=== PATIENT | male | born 1985 | race American Indian/Alaskan Native ===

== ENCOUNTER 2016-08-03 14:43 | Emergency (ER) | payer OTHER ==
[2016-08-03 15:03] VITALS: BP 135/85
--- NOTE | 2016-08-03 19:53 | Emergency Department Report ---
HPI - General Chief Complaint: Extremity Problem,Nontraumatic Time Seen by Provider: 08/03/16 19:23 - HPI HPI: 30-year-old male presents today with right foot pain 2 weeks that worsened today. Patient states that he's had a knot over the lateral aspect of his foot for 3 months which didn't bother him until 2 weeks ago. Denies injury or trauma. Denies any pain at rest. Describes his pain as 9 out of 10 aching pain with weightbearing. Denies numbness, weakness, paresthesias. Denies trying any medication for pain relief. Denies fever, chills, nausea, vomiting, abdominal pain, chest pain, shortness of breath. ED Past Medical Hx - Past Medical History Previous Medical History?: No - Surgical History Past Surgical History?: No - Social History Smoking Status: Current Every Day Smoker Substance Use Type: None - Medications Home Medications: Home Medications Medication Instructions Recorded Confirmed Last Taken Type Naproxen [Naprosyn] 500 mg PO BID #30 tablet 08/03/16 Unknown Rx ED Review of Systems ROS: Stated complaint: RT FOOT PAIN Other details as noted in HPI Constitutional: denies: chills, fever, malaise Eyes: denies: eye pain ENT: denies: ear pain, throat pain, congestion Respiratory: denies: cough, shortness of breath, wheezing Cardiovascular: denies: chest pain, palpitations Endocrine: no symptoms reported Gastrointestinal: denies: abdominal pain, nausea, vomiting Musculoskeletal: arthralgia Neurological: denies: headache, weakness, numbness, paresthesias Physical Exam - Physical Exam Vital Signs: Vital Signs 08/03/16 14:59 Temperature 98.3 F Pulse Rate 83 Respiratory 16 Rate Blood Pressure 135/85 O2 Sat by Pulse 98 Oximetry Physical Exam: GENERAL: The patient is well-developed and well-nourished. Patient is in NAD. HEAD: Normocephalic. Atraumatic. CHEST/LUNGS: Clear to auscultation throughout. HEART/CARDIOVASCULAR: Regular rate and rhythm. ABDOMEN: Abdomen is soft, nontender. No guarding or rebound tenderness. RIGHT FOOT: A 1 cm in diameter, indurated raised lesion noted over the lateral aspect of right midfoot; slightly tender to palpation. No bleeding or drainage noted. Normal sensation. Peripheral pulses intact. Capillary refill less than 2 seconds. NEURO: Alert and oriented x 3. ED Course Vital Signs 08/03/16 14:59 Temperature 98.3 F Pulse Rate 83 Respiratory 16 Rate Blood Pressure 135/85 O2 Sat by Pulse 98 Oximetry ED Medical Decision Making - Lab Data Vital Signs 08/03/16 14:59 Temperature 98.3 F Pulse Rate 83 Respiratory 16 Rate Blood Pressure 135/85 O2 Sat by Pulse 98 Oximetry - Radiology Data Radiology results: report reviewed Right foot x-ray: No focal osseous lesion is seen. No acute fracture or dislocation is identified. No radiopaque foreign body seen. - Medical Decision Making 30-year-old male presents today with right foot pain and raised lesion 3 months. Denies injury or trauma. His x-ray results reveal no acute abnormality. Patient will be provided with a referral for a foot and ankle specialist. Patient is in no acute distress at this time. He will be discharged home and is encouraged to follow up with a primary care provider. He will be sent home on Naprosyn and is encouraged to return to the emergency room for any worsening symptoms. Critical care attestation.: If time is entered above; I have spent that time in minutes in the direct care of this critically ill patient, excluding procedure time. ED Disposition Clinical Impression: Foot pain Qualifiers: Laterality: right Qualified Code(s): M79.671 - Pain in right foot Disposition: DISCHARGED TO HOME OR SELFCARE Is pt being admited?: No Does the pt Need Aspirin: No Condition: Stable Instructions: Arthralgia (ED) Additional Instructions: Follow-up with primary care provider. Return to the emergency department if symptoms worsen. Prescriptions: Naproxen [Naprosyn] 500 mg PO BID #30 tablet Referrals: PRIMARY CAREMD [Primary Care Provider] - 3-5 Days KIMBERLY GUZMAN DPM [Staff Physician] - 3-5 Days Forms: Work/School Release Form(ED) Time of Disposition: 21:06
--- NOTE | 2016-08-03 20:55 | XRay Report ---
FINAL REPORT PROCEDURE: XR FOOT 3 RT TECHNIQUE: Right foot, three views HISTORY: Tender knot over lateral midfoot COMPARISON: No prior studies are available for comparison. FINDINGS: No focal osseous lesion is seen. No acute fracture or dislocation is identified. No radiopaque foreign body is seen. IMPRESSION: No acute abnormality is identified
== END 2016-08-03 21:07 | disposition home or self-care (01) ==
LOC: ED 14:43
DX: M79.671 Pain in right foot (principal); F17.200 Nicotine dependence, unspecified, uncomplicated